=== PATIENT | male | born 1980 | race Caucasian/White ===

== ENCOUNTER 2023-10-24 07:54 | Emergency (ER) | payer OTHER ==
[2023-10-24 08:33] LABS: Absolute Lymphocytes (CBC) 0.7 K/uL (0.7-4.9); Absolute Monocytes 0.5 K/uL (0.1-1.3); Absolute Neutrophil 10.3 K/uL (1.8-8.0); Basophils % 0.4 % (0-1.3); Eosinophils % 0.2 % (0-4.4); Hematocrit 47.2 % (39.6-49.0); Hemoglobin 15.8 g/dL (13.6-17.9); Lymphocytes % 5.8 % (15.3-44.8); MCH 29.9 pg (27.0-35.0); MCHC 33.4 g/dL (32.0-36.0); MCV 89.5 fL (80-100); MPV 9.6 fL (7.6-11.3); Monocytes % 4.1 % (3.3-12.3); Neutrophils % 89.5 % (41.7-73.7); Platelets 224 thou/uL (152-406); RBC Red Blood Cell Count 5.27 M/uL (4.33-5.43); Red Cell Distribution Width 13.1 % (12.1-15.2)
[2023-10-24] MEDS ORDERED: KETOROLAC 30 MG/ML INJ ONE ×2 (08:46→10:52)
[2023-10-24] MEDS ORDERED: NA CHLORIDE 0.9% 1,000 ML ONE (08:46)
[2023-10-24 08:52] LABS: Albumin 4.3 g/dL (3.4-5.0); Albumin/Globulin Ratio 1.2 (1.1-1.8); Anion Gap 7.8 mEq/L (5.0-15.0); Bilirubin Total 0.7 mg/dL (0.2-1.0); Globulin 3.6 g/dL (2.3-3.5); Protein, Total 7.9 g/dL (6.4-8.2)
[2023-10-24 08:55] LABS: Potassium 4.8 mEq/L (3.5-5.1)
[2023-10-24 08:56] LABS: Specific Gravity 1.023 (1.005-1.030); Sqamous Epithelial None Seen /HPF (None Seen); Urine Bacteria None Seen /HPF (<20); Urine Bilirubin NEGATIVE (Negative); Urine Blood 1+ (Negative); Urine Clarity Clear (Clear); Urine Color Light-Yellow (Yellow); Urine Culture Reflex Order NOT NEEDED; Urine Glucose NEGATIVE (Negative); Urine Ketones NEGATIVE (Negative); Urine Microscopic Reflex YN ORDER UMIC; Urine Mucus Slight /HPF (None Seen); Urine Nitrite NEGATIVE (Negative); Urine Protein TRACE (Negative); Urine Urobilinogen Normal (Normal); Urine WBC <5 /HPF (<5)
[2023-10-24] MEDS ORDERED: MORPHINE 4 MG/ML SYR ONE (08:59)
[2023-10-24] MEDS ORDERED: ONDANSETRON 4 MG/2 ML VIAL ONE (08:59)
--- NOTE | 2023-10-24 09:32 | RAD REPORT ---
EXAM DESCRIPTION: CT - Abdomen Pelvis Wo Contrast - 10/24/2023 9:21 am CLINICAL HISTORY: Abdominal pain COMPARISON: None TECHNIQUE: Computed axial tomography of the abdomen and pelvis was obtained. IV and oral contrast we re not requested. All CT scans are performed using dose optimization technique as appropriate and may include automated exposure control or mA/KV adjustment according to patient size. FINDINGS: The evaluation of solid organs, vessels and bowel is limited secondary to the lack of con trast administration. The liver, spleen, pancreas, and adrenals grossly normal Small bilateral renal calculi. Mild left hydronephrosis. 3 millimeter calculus left UVJ. The appendix is normal. There is no evidence of diverticulitis. Mild anterior subluxation of L5 on S1. Spondylolysis L5 IMPRESSION: 3 millimeter calculus left UVJ results in mild left hydronephrosis
[2023-10-24 10:18] LABS: Blood Morphology Comment NOT SEEN (NOT SEEN); Platelet Estimate ADEQ; White Blood Cell Scan OK (OK)
--- NOTE | 2023-10-24 10:40 | ER ---
Nurse's Notes [facility] Name: Mark Espino Age: 42 yrs Sex: Male : 1980 Arrival Date: 10/24/2023 Time: 07:54 Bed 13 Private MD: Diagnosis: Calculus of ureter;Elevated creatinine Presentation: 10/23 08:05 Chief complaint: Patient states: LEFT ABD PAIN STARTED LAST NIGHT WITH VOMITING. db Coronavirus screen: Client denies travel out of the [place] in the last 14 days. At this time, the client does not indicate any symptoms associated with coronavirus-19. Ebola Screen: Patient negative for fever greater than or equal to 101.5 degrees Fahrenheit, and additional compatible Ebola Virus Disease symptoms Patient denies exposure to infectious person. Patient denies travel to an Ebola-affected area in the 21 days before illness onset. No symptoms or risks identified at this time. Initial Sepsis Screen: Does the patient meet any 2 criteria? No. Patient's initial sepsis screen is negative. Does the patient have a suspected source of infection? No. Patient's initial sepsis screen is negative. Risk Assessment: Do you want to hurt yourself or someone else? Patient reports no desire to harm self or others. Onset of symptoms was October 24, 2023. 08:05 Method Of Arrival: Ambulatory db 08:05 Acuity: RENAY 3 db Triage Assessment: 08:00 General: Appears in no apparent distress. uncomfortable, Behavior is calm, cooperative. db Pain: Complains of pain in abdomen. Neuro: Level of Consciousness is awake, alert, obeys commands, Oriented to person, place, time, situation. GI: Abdomen is flat, Reports lower abdominal pain, upper abdominal pain, nausea, vomiting. Historical: - Allergies: 08:34 No Known Allergies; db - Home Meds: 08:34 None [Active]; db - PMHx: 08:34 None; db - Immunization history:: Adult Immunizations unknown. - Infectious Disease History:: Denies. - Social history:: Smoking status: Patient denies any tobacco usage or history of. - Family history:: not pertinent. Screenin:24 [facility] ED Fall Risk Assessment (Adult) History of falling in the last 3 months, db including since admission No falls in past 3 months (0 pts) Confusion or Disorientation No (0 pts) Intoxicated or Sedated No (0 pts) Impaired Gait No (0 pts) Mobility Assist Device Used No (0 pt) Altered Elimination No (0 pt) Score/Fall Risk Level 0 - 2 = Low Risk Oriented to surroundings, Maintained a safe environment. Abuse screen: Denies threats or abuse. Denies injuries from another. Nutritional screening: No deficits noted. Tuberculosis screening: No symptoms or risk factors identified. Assessment: 08:05 Reassessment: SEE TRIAGE FOR INITIAL ASSESSMENT. db 08:31 Reassessment: PT TO RESTROOM. db 10:00 Reassessment: Patient appears in no apparent distress at this time. Patient and/or db family updated on plan of care and expected duration. Pain level reassessed. Patient is alert, oriented x 3, equal unlabored respirations, skin warm/dry/pink. General: Appears in no apparent distress. comfortable, Behavior is calm, cooperative. 11:00 Reassessment: Patient appears in no apparent distress at this time. Patient and/or db family updated on plan of care and expected duration. Pain level reassessed. Patient is alert, oriented x 3, equal unlabored respirations, skin warm/dry/pink. Patient states feeling better. Patient states symptoms have improved. Vital Signs: 08:05 Weight 97.52 kg; Height 5 ft. 8 in. ; db 08:10 BP 138 / 86; Pulse 68; Resp 20; Temp 98.2(O); Pulse Ox 100% on R/A; Height 5 ft. 8 in. ;jr12 10:00 BP 126 / 86; Pulse 53; Resp 16; Pulse Ox 99% on R/A; db 11:00 BP 136 / 86; Pulse 56; Resp 16; Pulse Ox 99% on R/A; db 08:05 Body Mass Index 32.69 (97.52 kg, 172.72 cm) db ED Course: 08:00 Patient arrived in ED. mg5 08:00 Deandre Méndez MD is Attending Physician. rt 08:00 Arm band placed on Patient placed in an exam room. db 08:22 Initial lab(s) drawn, by me, sent to lab. Missed attempt(s): 20 gauge in right db antecubital area. Bleeding controlled, band aid applied, catheter tip intact. 08:31 Mayi Canales, MANOJ is Primary Nurse. db 08:34 Triage completed. db 08:40 Inserted saline lock: 22 gauge in left antecubital area, using aseptic technique. Blood db collected. Flushed with 10 mL NS. 09:[address] db 09:23 Abdomen In Process Unspecified. EDMS 11:24 Patient has correct armband on for positive identification. Bed in low position. Call db light in reach. Side rails up X 1. threat monitoring analyst on. Pillow given. 11:25 No provider procedures requiring assistance completed. IV discontinued, intact, db bleeding controlled, No redness/swelling at site. 11:25 Provided Education on: DSICHARGE. db Administered Medications: 08:58 Drug: NS 0.9% IV 1000 ml IV at 1 bolus Per protocol; 1000 mL bolus Route: IV; Rate: 1 db bolus; Site: right antecubital; 11:16 Follow up: Response: No adverse reaction; IV Status: Completed infusion; IV Intake: db 1000ml 08:58 Drug: TORadol - Ketorolac IVP 15 mg IVP once Route: IVP; Site: right antecubital; db 09:30 Follow up: Response: No adverse reaction db 09:00 Drug: morphine IVP or IV 4 mg IVP once over 4 mins Route: IVP; Infused Over: 4 mins; db Site: left antecubital; 09:45 Follow up: Response: No adverse reaction db 09:00 Drug: Ondansetron IVP 4 mg IVP once; over 2 minutes Route: IVP; Site: left antecubital; db 09:30 Follow up: Response: No adverse reaction db 10:48 Drug: Ketorolac IVP 15 mg IVP once Route: IVP; Site: left antecubital; db 11:25 Follow up: Response: No adverse reaction; Pain is decreased db 10:50 Drug: morphine IVP or IV 4 mg IVP once over 4 mins Route: IVP; Infused Over: 4 mins; db Site: left antecubital; 11:25 Follow up: Response: No adverse reaction db Medication: 11:25 VIS not applicable for this client. db Intake: 11:16 IV: 1000ml; Total: 1000ml. db Outcome: 10:39 Discharge ordered by MD. rt 11:25 Discharged to home ambulatory, with family, db 11:25 Condition: stable 11:25 Discharge instructions given to patient, family, Instructed on discharge instructions, follow up and referral plans. Prescriptions given X 3, 11:28 Patient left the ED. db Signatures: Dispatcher [employer] Mayi Marte RN RN db Deandre Méndez MD MD rt [place], [place] mg5 Kaelyn Vences [id number]
--- NOTE | 2023-10-24 10:40 | EDPHYS ---
Physician Documentation [facility] Name: Mark Espino Age: 42 yrs Sex: Male : 1980 Arrival Date: 10/24/2023 Time: 07:54 Bed 13 Private MD: ED Physician Deandre Méndez HPI: 10/23 11:28 This 42 yrs old Male presents to ER via Ambulatory with complaints of Abdominal Pain, rt Constipation, Pain With Urination, Vomiting. 11:28 Patient presents to the ED with a left flank pain rating to the suprapubic region since rt last night. Has associated nausea without vomiting. Pain fluctuates in severity. Symptoms are moderate in severity, no other aggravating or alleviating factors. Historical: - Allergies: 08:34 No Known Allergies; db - Home Meds: :34 None [Active]; db - PMHx: :34 None; db - Immunization history:: Adult Immunizations unknown. - Infectious Disease History:: Denies. - Social history:: Smoking status: Patient denies any tobacco usage or history of. - Family history:: not pertinent. ROS: 11:28 Constitutional: Negative for fever, chills, and weight loss, Cardiovascular: Negative rt for chest pain, palpitations, and edema, Respiratory: Negative for shortness of breath, cough, wheezing, and pleuritic chest pain, MS/Extremity: Negative for injury and deformity, Skin: Negative for injury, rash, and discoloration, Neuro: Negative for headache, weakness, numbness, tingling, and seizure, 11:28 Abdomen/GI: Positive for abdominal pain, nausea, 11:28 Back: Positive for flank pain, Negative for injury or acute deformity, Exam: 11:28 Constitutional: This is a well developed, well nourished patient who is awake, alert, rt and in no acute distress. Head/Face: Normocephalic, atraumatic. Chest/axilla: Normal chest wall appearance and motion. Nontender with no deformity. No lesions are appreciated. Cardiovascular: Regular rate and rhythm with a normal S1 and S2. No gallops, murmurs, or rubs. Normal PMI, no JVD. No pulse deficits. Respiratory: Lungs have equal breath sounds bilaterally, clear to auscultation and percussion. No rales, rhonchi or wheezes noted. No increased work of breathing, no retractions or nasal flaring. Abdomen/GI: Soft, non-tender, with normal bowel sounds. No distension or tympany. No guarding or rebound. No evidence of tenderness throughout. Skin: Warm, dry with normal turgor. Normal color with no rashes, no lesions, and no evidence of cellulitis. MS/ Extremity: Pulses equal, no cyanosis. Neurovascular intact. Full, normal range of motion. Neuro: Awake and alert, GCS 15, oriented to person, place, time, and situation. Cranial nerves II-XII grossly intact. Motor strength 5/5 in all extremities. Sensory grossly intact. Cerebellar exam normal. Normal gait. Vital Signs: 08:05 Weight 97.52 kg; Height 5 ft. 8 in. ; db 08:10 BP 138 / 86; Pulse 68; Resp 20; Temp 98.2(O); Pulse Ox 100% on R/A; Height 5 ft. 8 in. ;jr12 10:00 BP 126 / 86; Pulse 53; Resp 16; Pulse Ox 99% on R/A; db 11:00 BP 136 / 86; Pulse 56; Resp 16; Pulse Ox 99% on R/A; db 08:05 Body Mass Index 32.69 (97.52 kg, 172.72 cm) db MDM: 08:10 Patient medically screened. rt 11:28 Differential diagnosis: Kidney stone, pyelonephritis, diverticulitis. Data reviewed: rt vital signs, nurses notes, lab test result(s), radiologic studies. Consideration of Admission/Observation Escalation of care including admission/observation considered. Patient with elevated creatinine. Patient with no mild hydronephrosis, with a 3 mm stone, likely to pass. Inform patient of these findings, instructed him to increase fluid intake and have this lab rechecked. Do not believe that he requires admission at this time. Strict return precautions were discussed.. I considered the following discharge prescriptions or medication management in the emergency department Medications were administered in the Emergency Department. See MAR. Independent interpretation of the following test(s) in the Emergency Department CT Scan: My interpretation is Ureteral stone seen on interpretation of CT scan images. Counseling: I had a detailed discussion with the patient and/or guardian regarding the historical points, exam findings, and any diagnostic results supporting the discharge/admit diagnosis, lab results, radiology results, the need for outpatient follow up. Response to treatment: the patient's symptoms have markedly improved after treatment. 10/23 08:17 Order name: CBC with Diff; Complete Time: 10:23 rt 10/23 08:17 Order name: CMP; Complete Time: 09:35 rt 10/23 08:17 Order name: Lipase; Complete Time: 09:35 rt 10/23 08:17 Order name: Urinalysis w/ reflexes; Complete Time: 09:35 rt 10/23 10:18 Order name: CBC Smear Scan; Complete Time: 10:23 EDMS 10/23 09:19 Order name: Abdomen ; Complete Time: 09:35 EDMS 10/23 08:17 Order name: IV Saline Lock; Complete Time: 09:00 rt 10/23 08:17 Order name: Labs collected and sent; Complete Time: 09:00 rt Administered Medications: 08:58 Drug: NS 0.9% IV 1000 ml IV at 1 bolus Per protocol; 1000 mL bolus Route: IV; Rate: 1 db bolus; Site: right antecubital; 11:16 Follow up: Response: No adverse reaction; IV Status: Completed infusion; IV Intake: db 1000ml 08:58 Drug: TORadol - Ketorolac IVP 15 mg IVP once Route: IVP; Site: right antecubital; db 09:30 Follow up: Response: No adverse reaction db 09:00 Drug: morphine IVP or IV 4 mg IVP once over 4 mins Route: IVP; Infused Over: 4 mins; db Site: left antecubital; 09:45 Follow up: Response: No adverse reaction db 09:00 Drug: Ondansetron IVP 4 mg IVP once; over 2 minutes Route: IVP; Site: left antecubital; db 09:30 Follow up: Response: No adverse reaction db 10:48 Drug: Ketorolac IVP 15 mg IVP once Route: IVP; Site: left antecubital; db 11:25 Follow up: Response: No adverse reaction; Pain is decreased db 10:50 Drug: morphine IVP or IV 4 mg IVP once over 4 mins Route: IVP; Infused Over: 4 mins; db Site: left antecubital; 11:25 Follow up: Response: No adverse reaction db Disposition Summary: 10/24/23 10:39 Discharge Ordered Notes: Location: Home rt Problem: new rt Symptoms: have improved rt Condition: Stable rt Diagnosis - Calculus of ureter rt - Elevated creatinine rt Followup: rt - With: Private Physician - When: 5 - 6 days - Reason: Discharge Instructions: - Discharge Summary Sheet rt - Kidney Stones rt - Serum Creatinine Test rt Forms: - Medication Reconciliation Form rt - Antibiotic Education rt - Prescription Opioid Use rt - Patient Portal Instructions rt - Leadership Thank You Letter rt Prescriptions: - Flomax 0.4 mg Oral capsule - take 1 capsule ORAL route daily; 14 capsule; Refills: 0, Product Selection rt Permitted - acetaminophen-codeine 300-30 mg Oral tablet - take 1 tablet ORAL route every 6 hours as needed for pain; 15 tablet; Refills: rt 0, Product Selection Permitted - ondansetron 4 mg Oral Tablet,disintegrating - take 1 tablet ORAL route every 6 hours as needed for nausea; 15 tablet; rt Refills: 0, Product Selection Permitted Signatures: Dispatcher [employer] Mayi Marte RN RN Deandre Pope MD MD rt Corrections: (The following items were deleted from the chart) 08:17 08:17 CBC+H.LAB.BRZ ordered. EDMS EDMS 08:17 08:17 COMPREHENSIVE METABOLIC PANEL+C.LAB.BRZ ordered. EDMS EDMS 08:17 08:17 LIPASE+C.LAB.BRZ ordered. EDMS EDMS 08:17 08:17 Urinalysis+U.LAB.BRZ ordered. EDMS EDMS 08:17 08:17 Abdomen Pelvis W Con+CT.RAD.BRZ ordered. EDMS EDMS
[2023-10-24] MEDS ORDERED: MORPHINE 2 MG/ML SYR ONE ×2 (10:52→10:58)
[2023-10-24 11:46] VITALS: TEMP 98.2
[2023-10-24 11:52] VITALS: O2SAT 99
[2023-10-24 11:53] VITALS: BP 136/86
== END 2023-10-24 11:28 | disposition home or self-care (01) ==
LOC: ER 07:54
DX: N20.1 Calculus of ureter (principal); R94.4 Abnormal results of kidney function studies
CPT/HCPCS: 85025; 81001; 36415; 83690; 80053; 74176; 99285; J2270 ×2; J2405; J7030